=== PATIENT | male | born 1985 | race Two or more races ===

== ENCOUNTER 2020-05-18 21:57 | Emergency (ER) | payer OTHER ==
[~2020-05-18] VITALS: Ht 185.4 cm; Wt 92.1 kg
[2020-05-19] MEDS ORDERED: ANUSOL-HC25 MG RECTAL (01:50)
[2020-05-19] MEDS ORDERED: MIRALAX510 GM PO (01:50)
== END 2020-05-19 02:40 | disposition home or self-care (01) ==
LOC: ER 21:57
DX: K62.5 Hemorrhage of anus and rectum (principal); K64.8 Other hemorrhoids

== ENCOUNTER 2020-11-28 07:13 | Outpatient (CLI) | payer OTHER ==
[~2020-11-28 07:13] MED LIST: ANUSOL-HC25 MG RECTAL; MIRALAX510 GM PO
== END 2020-11-28 07:37 | disposition home or self-care (01) ==
LOC: LAB 07:13
PROVIDERS: ATTEND Internal Medicine Endocrinology, Diabetes & Metabolism
DX: Z20.828 Contact with and (suspected) exposure to other viral communicable diseases (principal); Z20.822 Contact with and (suspected) exposure to COVID-19

== ENCOUNTER → 2021-01-09 06:27 | Outpatient (CLI) | payer OTHER | END | disposition home or self-care (01) | LOC: LAB 06:27 | PROVIDERS: ATTEND Internal Medicine Endocrinology, Diabetes & Metabolism | DX: Z20.828 Contact with and (suspected) exposure to other viral communicable diseases (principal) ==